=== PATIENT | female | born 1990 | race African-American/Black ===

== ENCOUNTER 2017-04-05 21:31 | Emergency (ER) | payer OTHER ==
[~2017-04-05 21:31] MED LIST: FLEXERIL10 MG; FLEXERIL10 MG PO; IBUPROFEN800 MG PO; ORUDIS75 M1 DOB; ZANTAC150 M1 PO
== END 2017-04-06 00:50 | disposition left against medical advice (07) ==
LOC: CED 21:31
DX: Z53.21 Procedure and treatment not carried out due to patient leaving prior to being seen by health care provider (principal)
CPT/HCPCS: 87651